=== PATIENT | male | born 1985 | race Two or more races ===

== ENCOUNTER 2020-11-16 11:41 | Emergency (ER) | payer BC ==
--- NOTE | 2020-11-16 13:38 | CT ---
INDICATION: Left lower quadrant pain. TECHNIQUE: CT of the abdomen and pelvis with 100 cc Isovue 370 IV contrast. Coronal and sagittal reconstructions. COMPARISON: None. FINDINGS: Mild diffuse hepatic steatosis. Calcified hepatic granuloma. The spleen is enlarged measuring 14.4 cm in length. The gallbladder, pancreas, and adrenal glands are negative. No biliary dilation. Hepatic and portal veins are patent. Symmetric enhancement of the kidneys. No hydronephrosis or ureteral dilation. No obstructing urinary calculi. The bladder and prostate gland are normal in appearance. There is a very large amount of stool throughout the entire colon, greatest in the cecum which measures up to 9 cm in diameter. Mild wall thickening and inflammatory fat stranding about the distal descending colon and sigmoid colon suggesting inflammation (series 203, image 48). Small amount of free fluid in the left paracolic gutter. No intraperitoneal free air. The distal sigmoid colon and rectum are decompressed. The appendix is not identified. Surgical clips in the right lower quadrant mesentery could be related to prior appendectomy. No evidence of small bowel obstruction. Small bilateral fat containing inguinal hernias. Tiny fat containing umbilical hernia. No lymphadenopathy. The bones are unremarkable. Bibasilar atelectasis. IMPRESSION: 1. Very large amount of stool throughout the entire colon, with mild wall thickening and inflammatory fat stranding about the distal descending colon and sigmoid colon. Findings could represent stercoral colitis. 2. Mild diffuse hepatic steatosis. Mild splenomegaly. Please note that all CT scans at this facility use dose modulation, iterative reconstruction, and/or weight-based dosing when appropriate to reduce radiation dose to as low as reasonably achievable. Dictated by Bethany Goodman MD @ 11/16/2020 1:37:[address] Bethany Goodman @ Nov 16 2020 1:37PM
[2020-11-16] MEDS ORDERED: Iopamidol 755 MG/ML 500 ML Multipack Bottle IVPUSH STA (13:58)
[2020-11-16] MEDS ORDERED: Magnesium Citrate Solution 296 ML Bottle PO ONE (14:11)
--- NOTE | 2020-11-16 14:15 | EDM.PDOC ---
ED HPI GENERAL MEDICAL PROBLEM - General Chief Complaint: Abdominal Pain Stated Complaint: STOMACH PAIN Time Seen by Provider: 11/16/20 11:46 Source of Information: Reports: Patient History Limitations: Reports: No Limitations - History of Present Illness INITIAL COMMENTS - FREE TEXT/NARRATIVE: HISTORY AND PHYSICAL: History of present illness: Patient is a 35-year-old male who presents to the emergency room from the clinic with concerns of diverticulitis. Patient states he has had left lower abdominal pain intermittently over the past few weeks. Patient denies any fever, chills, headache, change in vision, syncope or near syncope. Denies any chest pain, back pain, shortness of breath or cough. Denies any nausea, vomiting or dysuria. Patient states he does feel like he is slightly constipated; hasn't had a BM in 1-2 days. He has not noted any blood in urine or stool. Patient has been eating and drinking appropriately. Review of systems: As per history of present illness and below otherwise all systems reviewed and negative. Past medical history: As per history of present illness and as reviewed below otherwise noncontributory. Surgical history: As per history of present illness and as reviewed below otherwise noncontributory. Social history: See social history for further information Family history: As per history of present illness and as reviewed below otherwise noncontributory. Physical exam: General: Well developed and well nourished 35-year-old male. Alert and orientated x 3. Nontoxic in appearance and in no acute distress. Vital signs are stable and have been reviewed by me. Nursing notes were reviewed. HEENT: Atraumatic, normocephalic, pupils equal and reactive bilaterally, negative for conjunctival pallor or scleral icterus, mucous membranes moist, trachea midline. No drooling or trismus noted. No meningeal signs. No hot potato voice noted. Lungs: Clear to auscultation bilaterally. No wheezes, rales, or rhonchi. Chest nontender. Normal work of breathing, no accessory muscles used. Heart: S1S2, regular rate and rhythm without overt murmur, gallops, or rubs. No JVD. No peripheral edema Abdomen: Soft, nondistended, diffuse tenderness to lower abdomen. Normoactive bowel sounds. Negative for masses or costovertebral tenderness. Skin: Intact, warm, dry. No lesions or rashes noted. Hematologic: No petechiae or purpra. Mucosa appropriate color and normal nail bed color and refill. Extremities: Atraumatic, moves all extremities per self without difficulty or deficits, negative for cords or calf pain. Neurovascular unremarkable. Neuro: Awake, alert, oriented. Cranial nerves II through XII unremarkable. Cerebellum unremarkable. Motor and sensory unremarkable throughout. Exam nonfocal. Psychiatric: Mood and affect are appropriate. Normal thought process. Answering questions appropriately. Notes: *This patient was seen and evaluated during the 2019 SARS-CoV-2 novel coronavirus pandemic period. Community viral transmission is ongoing at time of this encounter and the emergency department is operating under pandemic response procedures. Patient is co-managed by Dr Villalobos. Labs are unremarkable. VSS. CT shows a very large amount of stool throughout the entire colon, with mild wall thickening and inflammatory fat stranding about the distal descending colon and sigmoid colon. Findings could represent stercoral colitis. Mild diffuse hepatic steatosis. Mild splenomegaly. I did talk with the general surgeon, Dr. Pablo who states this patient could be managed as inpatient or outpatient to ensure he has a bowel movement. Patient states he would prefer to go home and take the medication we discussed. We will send him with a fleets enema and bottle of magnesium citrate. I have talked with the patient about today's findings, in addition to providing specific details for plan of care. Reassessment at the time of disposition demonstrates that the patient is in no acute distress. Patient will return tomorrow if he does not have a bowel movement by morning. The patient is stable for discharge, counseling was provided and we discussed in great detail signs and symptoms that would prompt them to return to the Emergency Department. Medication, follow up and supportive care measures were reviewed and discussed. Voices understanding and is agreeable to plan of care. Denies any further questions or concerns at this time. Diagnostics: CBC, CMP, CT abdomen and pelvis Therapeutics: Magnesium citrate x1 bottle, fleets enema Prescription: None Impression: Fecal impaction Definitive disposition and diagnosis as appropriate pending reevaluation and review of above. Abdomen Pain Score (Numeric/FACES): 6 - Related Data Allergies Allergy/AdvReac Type Severity Reaction Status Date / Time No Known Allergies Allergy Verified 11/16/20 12:29 Home Meds: Home Meds . [No Known Home Meds] 11/16/20 [History] Past Medical History - Past Health History Medical/Surgical History: Denies Medical/Surgical History - Infectious Disease History Infectious Disease History: Reports: None Social & Family History - Tobacco Use Tobacco Use Status *Q: Current Every Day Tobacco User Years of Tobacco use: 10 Packs/Tins Daily: 0.2 - Recreational Drug Use Recreational Drug Use: No ED ROS GENERAL - Review of Systems Review Of Systems: Comprehensive ROS is negative, except as noted in HPI. ED EXAM, GENERAL - Physical Exam Exam: See Below (See dictation) Course - Vital Signs Last Recorded V/S: Last Vital Signs Temp 97.9 F 11/16/20 12:30 Pulse 62 11/16/20 12:30 Resp 16 11/16/20 12:30 BP 135/79 11/16/20 12:30 Pulse Ox 96 11/16/20 12:30 - Orders/Labs/Meds Orders: Active Orders 24 hr Category Date Time Status Enema [RC] ASDIRECTED Care 11/16/20 14:11 Ordered Meds: Medications Discontinued Medications Generic Name Dose Route Start Last Admin Trade Name Adriana PRN Reason Stop Dose Admin Iopamidol 100 ml 11/16/20 13:58 11/16/20 13:59 Iopamidol 755 Mg/Ml 500 Ml Multipack Bottle IVPUSH 11/16/20 13:59 100 ml ONETIME STA Administration Magnesium Citrate 50 ml 11/16/20 14:11 Magnesium Citrate Solution 296 Ml Bottle PO 11/16/20 14:12 ONETIME ONE Departure - Departure Time of Disposition: 14:18 Disposition: Home, Self-Care 01 Clinical Impression: Fecal impaction - Discharge Information Instructions: Fecal Impaction Referrals: Alicia Brizuela PA [Primary Care Provider] - Forms: ED Department Discharge Additional Instructions: The following information is given to patients seen in the emergency department who are being discharged to home. This information is to outline your options for follow-up care. We provide all patients seen in our emergency department with a follow-up referral. The need for follow-up, as well as the timing and circumstances, are variable depending upon the specifics of your emergency department visit. If you don't have a primary care physician on staff, we will provide you with a referral. We always advise you to contact your personal physician following an emergency department visit to inform them of the circumstance of the visit and for follow-up with them and/or the need for any referrals to a consulting specialist. The emergency department will also refer you to a specialist when appropriate. This referral assures that you have the opportunity for follow-up care with a specialist. All of these measure are taken in an effort to provide you with optimal care, which includes your follow-up. Under all circumstances we always encourage you to contact your private physician who remains a resource for coordinating your care. When calling for follow-up care, please make the office aware that this follow-up is from your recent emergency room visit. If for any reason you are refused follow-up, please contact the [facility] Emergency Department at and asked to speak to the emergency department charge nurse. [facility] [address] [place] [id number] [place] [address] Thank you for choosing the [facility] emergency department in [place] for your medical needs today. It was a pleasure caring for you. Today you were seen in the emergency department for fecal impaction 1. Today you were evaluated on an emergent basis. You have inflammation of your colon due to impacted fecal material. Please take the magnesium citrate orally and use the fleets enema to get "both ends moving". 2. Tylenol and/or ibuprofen as needed for pain management. 3. If you do not have a bowel movement by tomorrow please return to the emergency room for further evaluation. 4. Follow-up with primary care or general surgeon as we discussed. Return to the emergency room as needed and as discussed. Sepsis Event Note (ED) - Focused Exam Vital Signs: Vital Signs Temp Pulse Resp BP Pulse Ox 11/16/20 12:30 97.9 F 62 16 135/79 96 - My Orders Last 24 Hours: My Active Orders 11/16/20 14:11 Enema [RC] ASDIRECTED - Assessment/Plan Last 24 Hours: My Active Orders 11/16/20 14:11 Enema [RC] ASDIRECTED
== END 2020-11-16 14:23 | disposition home or self-care (01) ==
LOC: MW.ED 11:41
DX: K56.41 Fecal impaction (principal); Z72.0 Tobacco use
CPT/HCPCS: 74177; 99284; A9270; Q9967; 99283

== ENCOUNTER 2020-11-17 08:12 | Inpatient (IN) | payer BC ==
[2020-11-17] MEDS ORDERED: Morphine 4 MG/ML Syringe IVPUSH ONE (09:14)
[2020-11-17] MEDS ORDERED: Lactated Ringers 1,000 ML IV SCH ×2 (09:15→14:45)
[2020-11-17] MEDS ORDERED: Ondansetron 4 MG/2 ML SDV IVPUSH ONE (10:22)
[2020-11-17 10:54] LABS: BLOOD UREA NITROGEN,BUN 17 mg/dL (7.0-18.0); CARBON DIOXIDE,CO2 26.3 mmol/L (21.0-32.0); CHLORIDE,CL 102 mmol/L (98-107); GLUCOSE RANDOM 130 mg/dL (74-106); POTASSIUM,K 3.7 mmol/L (3.5-5.1); SODIUM,NA 139 mmol/L (136-148)
--- NOTE | 2020-11-17 12:33 | CT ---
Indication: No bowel movement, now vomiting, evaluate for obstruction Technique: Volumetric multidetector CT images of the abdomen and pelvis were obtained after the administration of intravenous contrast. 100 cc Isovue 370 low osmolar intravenous contrast Comparison: CT abdomen and pelvis November 16, 2020 Findings: The lung bases demonstrate basilar atelectasis and consolidative opacity, increased from comparison exam. The liver is enlarged with mild hepatic steatosis. The portal vein is patent. There is likely vicarious excretion of contrast within the gallbladder lumen. There is no significant common biliary ductal dilatation or abrupt cut off. The spleen is normal in enhancement and size. The stomach and duodenum are grossly unremarkable. The pancreas is normal in enhancement without significant atrophy. The adrenal glands are unremarkable. The kidneys demonstrate preserved corticomedullary differentiation without evidence of obstructive uropathy. There is again seen a severe amount of stool with abrupt focal caliber transition of the rectosigmoid colon which may represent obstructive changes and/or stricture. There is mild hyperemia and nonspecific stranding again seen adjacent to the rectosigmoid colon which may represent developing stercoral colitis. The appendix is surgically absent. There is no significant mesenteric, retroperitoneal, or pelvic sidewall lymph nodes. The aorta is nonaneurysmal. There is no significant atherosclerotic disease appreciated. The solid pelvic viscera are grossly unremarkable. There is no free fluid or free air. The anterior abdominal wall is intact without significant hernias. The lumbar vertebral body heights are grossly maintained with mild degenerative disc disease. Impression: There is again seen a severe diffuse amount of stool seen throughout the entirety of the colon with abrupt caliber transition within the mid rectosigmoid colon which may represent a focal stricture versus underlying mass with associated obstruction seen best on series 201, image 182. Correlate with direct visualization and proctoscopy. Otherwise, there is somewhat increased pericolonic inflammatory changes of the descending and rectosigmoid colon consistent with developing stercoral colitis. Please note that all CT scans at this facility use dose modulation, iterative reconstruction, and/or weight-based dosing when appropriate to reduce radiation dose to as low as reasonably achievable. Dictated by Brad Lua MD @ 11/17/2020 12:32:[address] Brad Lua @ Nov 17 2020 12:32PM
--- NOTE | 2020-11-17 14:38 | PCM.HP.2 ---
H&P History of Present Illness - General Date of Service: 11/17/20 Admit Problem/Dx: Admission Diagnosis/Problem Admission Diagnosis/Problem Colitis Source of Information: Patient History Limitations: Reports: No Limitations - History of Present Illness Initial Comments - Free Text/Narative: This 35-year-old male with no significant past medical history presented to the ER today with nausea vomiting abdominal pain and no bowel movement since Monday or Monday. He was in the ER yesterday with similar complaints was sent home to follow bowel regimen and was told to return if he did not have a bowel movement. He reports that he took the medicine including mag citrate and vomited most of the night without any bowel movements. He reports a bowel movement he had on Monday or Monday was smaller in caliber than normal and felt like he did not empty satisfactorily. He does not report any slow change in caliber of stools this was more abrupt in nature. He denies any black or bloody bowel movements. He denies any fevers or chills. He reports his abdominal pain is left lower quadrant and comes and goes and cramping sensation that is sharp and shooting. He does have other diffuse abdominal pain. He denies any chest pain shortness of breath. Denies any troubles urinating. He denies any burning or frequency urgency with urination. He denies any history o f constipation or this sort of abdominal pain in the past. He denies any history of IBS or IBD. He denies any family history of IBD. He does report that his father had colon cancer at the age of 54-55 where he had chemotherapy and a colectomy. Patient reports he smokes 1 to 2 cigarettes daily denies any chewing tobacco, no recreational drug use and occasional social alcohol use. In the ER mild leukocytosis noted at 12,860 hemoglobin 17.2 hematocrit 47.5. Platelet count 190,000 neutrophils 88.4. INR 1.07. Sodium 139 potassium 3.7 BUN 17 creatinine 0.9. Glucose mildly elevated at 130 lactic acid 1.5. Bilirubin AST ALT and alk phos all within normal limits. Covid swab negative. CT abdomen pelvis was obtained in the ER which shows severe diffuse amount of stool seen throughout the entirety of the colon with abrupt caliber transition within the mid rectosigmoid colon which may represent a focal stricture versus underlying mass with associated obstruction. Correlate with direct visualization or proctoscopy. There is somewhat increased pericolonic inflammatory changes of the descending and rectal colon consistent with developing stercoral colitis. In the ER he was given Zofran and morphine. Dr. Pablo, general surgeon was contacted recommended admission to hospitalist team for further evaluation and management and he will consult. I did call Dr. Pablo regarding CT findings with concerns of possible obstruction due to mass or stricture. He will come evaluate patient for further guidance on management. abdomen Pain Score (Numeric/FACES): 3 - Related Data Allergies/Adverse Reactions: Allergies Allergy/AdvReac Type Severity Reaction Status Date / Time No Known Allergies Allergy Verified 11/17/20 08:42 Home Medications: Home Meds . [No Known Home Meds] 11/16/20 [History] Past Medical History - Past Health History Medical/Surgical History: Denies Medical/Surgical History HEENT History: Reports: None Cardiovascular History: Reports: None. Denies: CAD, High Cholesterol, Stents Respiratory History: Reports: None. Denies: Asthma, PE Gastrointestinal History: Reports: None Genitourinary History: Reports: None Musculoskeletal History: Reports: None Neurological History: Reports: None Psychiatric History: Reports: None. Denies: Anxiety Endocrine/Metabolic History: Reports: None. Denies: Diabetes, Type II Hematologic History: Reports: None Immunologic History: Reports: None Oncologic (Cancer) History: Reports: None Dermatologic History: Reports: None - Infectious Disease History Infectious Disease History: Reports: None - Past Surgical History Head Surgeries/Procedures: Reports: None GI Surgical History: Reports: Appendectomy Social & Family History - Family History Family Medical History: No Pertinent Family History - Tobacco Use Tobacco Use Status *Q: Current Every Day Tobacco User Years of Tobacco use: 10 Packs/Tins Daily: 0.1 Used Tobacco, but Quit: No Second Hand Smoke Exposure: No - Caffeine Use Caffeine Use: Reports: Coffee - Alcohol Use Alcohol Use Frequency: Rarely, Socially - Recreational Drug Use Recreational Drug Use: No H&P Review of Systems - Review of Systems: Review Of Systems: See Below General: Reports: Fatigue. Denies: Fever, Chills HEENT: Reports: No Symptoms. Denies: Headaches, Sinus Congestion, Vertigo Pulmonary: Reports: No Symptoms. Denies: Shortness of Breath Cardiovascular: Reports: No Symptoms. Denies: Chest Pain Gastrointestinal: Reports: Abdominal Pain (LLQ), Constipation, Distension, Nausea, Vomiting, Other (caliber change as of Monday/Monday no bm since monday and no passing flatus). Denies: Black Stool, Bloody Stool, Melena Genitourinary: Reports: No Symptoms. Denies: Dysuria, Frequency Musculoskeletal: Reports: No Symptoms. Denies: Joint Pain Skin: Reports: No Symptoms Psychiatric: Reports: No Symptoms Neurological: Reports: No Symptoms Hematologic/Lymphatic: Reports: No Symptoms Immunologic: Reports: No Symptoms Exam - Exam Exam: See Below - Vital Signs Vital Signs: Last Vital Signs Temp 98.1 F 11/17/20 08:43 Pulse 93 11/17/20 12:56 Resp 17 11/17/20 12:56 BP 127/80 11/17/20 12:56 Pulse Ox 96 11/17/20 12:56 Weight: 100.834 kg - Exam Quality Assessment: DVT Prophylaxis (SCDs only). No: Supplemental Oxygen General: Alert, Oriented, Cooperative HEENT: Conjunctiva Clear, Posterior Pharynx Clear. No: Mucosa Moist & [place] (dry) Lungs: Clear to Auscultation, Normal Respiratory Effort Cardiovascular: Regular Rate, Regular Rhythm GI/Abdominal Exam: Soft, No Mass, Distended, Tender (LLQ main pain location with diffuse tenderness). No: Normal Bowel Sounds (hypoactive) Back Exam: Normal Inspection, Full Range of Motion Extremities: Normal Inspection, Normal Range of Motion, Non-Tender, No Pedal Edema Skin: Warm, Dry, Intact Neuro Extensive - Mental Status: Alert, Oriented x3 Psychiatric: Alert, Normal Affect, Normal Mood - Patient Data Lab Results Last 24 hrs: Laboratory Results - last 24 hr 11/17/20 11/17/20 11/17/20 Range/Units 10:10 10:10 10:10 WBC 12.86 H (4.0-11.0) K/uL RBC 5.66 (4.50-5.90) M/uL Hgb 17.2 H (13.0-17.0) g/dL Hct 47.5 (38.0-50.0) % MCV 83.9 (80.0-98.0) fL MCH 30.4 (27.0-32.0) pg MCHC 36.2 (31.0-37.0) g/dL RDW Std Deviation 39.5 (28.0-62.0) fl RDW Coeff of Edgar 13 (11.0-15.0) % Plt Count 190 (150-400) K/uL MPV 12.70 H (7.40-12.00) fL Neut % (Auto) 88.4 H (48.0-80.0) % Lymph % (Auto) 6.8 L (16.0-40.0) % [place] % (Auto) 4.7 (0.0-15.0) % Eos % (Auto) 0.0 (0.0-7.0) % Baso % (Auto) 0.1 (0.0-1.5) % Neut # (Auto) 11.4 H (1.4-5.7) K/uL Lymph # (Auto) 0.9 (0.6-2.4) K/uL [place] # (Auto) 0.6 (0.0-0.8) K/uL Eos # (Auto) 0.0 (0.0-0.7) K/uL Baso # (Auto) 0.0 (0.0-0.1) K/uL Nucleated RBC % 0.0 /100WBC Nucleated RBCs # 0 K/uL INR 1.07 Sodium 139 (136-148) mmol/L Potassium 3.7 (3.5-5.1) mmol/L Chloride 102 (98-107) mmol/L Carbon Dioxide 26.3 (21.0-32.0) mmol/L BUN 17 (7.0-18.0) mg/dL Creatinine 0.9 (0.8-1.3) mg/dL Est Cr Clr Drug Dosing 119.41 mL/min Estimated GFR (MDRD) > 60.0 ml/min Glucose 130 H (74-106) mg/dL Lactic Acid (0.4-2.0) mmol/L Calcium 8.8 (8.5-10.1) mg/dL Total Bilirubin 0.8 (0.2-1.0) mg/dL AST 30 (15-37) IU/L ALT 44 (14-63) IU/L Alkaline Phosphatase 100 (46-116) U/L Total Protein 7.9 (6.4-8.2) g/dL Albumin 4.3 (3.4-5.0) g/dL Globulin 3.6 (2.6-4.0) g/dL Albumin/Globulin Ratio 1.2 (0.9-1.6) SARS-CoV-2 RNA (NICK) (NEGATIVE) 11/17/20 11/17/20 Range/Units 10:36 12:49 WBC (4.0-11.0) K/uL RBC (4.50-5.90) M/uL Hgb (13.0-17.0) g/dL Hct (38.0-50.0) % MCV (80.0-98.0) fL MCH (27.0-32.0) pg MCHC (31.0-37.0) g/dL RDW Std Deviation (28.0-62.0) fl RDW Coeff of Edgar (11.0-15.0) % Plt Count (150-400) K/uL MPV (7.40-12.00) fL Neut % (Auto) (48.0-80.0) % Lymph % (Auto) (16.0-40.0) % [place] % (Auto) (0.0-15.0) % Eos % (Auto) (0.0-7.0) % Baso % (Auto) (0.0-1.5) % Neut # (Auto) (1.4-5.7) K/uL Lymph # (Auto) (0.6-2.4) K/uL [place] # (Auto) (0.0-0.8) K/uL Eos # (Auto) (0.0-0.7) K/uL Baso # (Auto) (0.0-0.1) K/uL Nucleated RBC % /100WBC Nucleated RBCs # K/uL INR Sodium (136-148) mmol/L Potassium (3.5-5.1) mmol/L Chloride (98-107) mmol/L Carbon Dioxide (21.0-32.0) mmol/L BUN (7.0-18.0) mg/dL Creatinine (0.8-1.3) mg/dL Est Cr Clr Drug Dosing mL/min Estimated GFR (MDRD) ml/min Glucose (74-106) mg/dL Lactic Acid 1.5 (0.4-2.0) mmol/L Calcium (8.5-10.1) mg/dL Total Bilirubin (0.2-1.0) mg/dL AST (15-37) IU/L ALT (14-63) IU/L Alkaline Phosphatase (46-116) U/L Total Protein (6.4-8.2) g/dL Albumin (3.4-5.0) g/dL Globulin (2.6-4.0) g/dL Albumin/Globulin Ratio (0.9-1.6) SARS-CoV-2 RNA (NICK) NEGATIVE (NEGATIVE) Result Diagrams: 11/17/20 10:10 11/17/20 10:10 Sepsis Event Note - Evaluation Sepsis Screening Result: No Definite Risk - Focused Exam Vital Signs: Vital Signs Temp Pulse Resp BP Pulse Ox 11/17/20 12:56 93 17 127/80 96 11/17/20 10:09 88 17 134/84 95 11/17/20 08:43 98.1 F 104 H 16 126/79 94 L - Problem List (1) Colonic obstruction SNOMED Code(s): 74332744 ICD Code: K56.609 - UNSP INTESTNL OBST, UNSP TO PARTIAL VERSUS COMPLETE OBST Status: Acute Current Visit: Yes (2) Colitis SNOMED Code(s): 77272942 ICD Code: K52.9 - NONINFECTIVE GASTROENTERITIS AND COLITIS, UNSPECIFIED Status: Acute Current Visit: Yes Problem List Initiated/Reviewed/Updated: Yes Orders Last 24hrs: Active Orders 24 hr Category Date Time Status Admission Status [Patient Status] [ADT] Stat ADT 11/17/20 13:07 Active Lactated Ringers [Ringers, Lactated] 1,000 ml Med 11/17/20 09:15 Active IV ASDIRECTED Medication Orders Lactated Ringer's (Ringers, Lactated) 1,000 mls @ 999 mls/hr IV ASDIRECTED VENESSA Last Admin: 11/17/20 10:10 Dose: 999 mls/hr Documented by: JAMAL Assessment/Plan Comment:: This 35-year-old male admitted with abdominal pain found to have possible colonic obstruction 1. Abdominal pain with possible colonic obstruction/stricture or mass -Consult Dr. Cornel Pablo general surgery he will come to see patient now -N.p.o. -Consider NG tube due to vomiting, no longer vomiting after zofran -Due to pericolonic inflammatory changes in the descending and rectosigmoid colon noted on CT, will add Cipro and Flagyl -Morphine as needed pain -Zofran as needed nausea -Monitor electrolytes closely specifically potassium -LR 125 mL/h VTE prophylaxis: SCDs for now due to possible surgical intervention needed GI prophylaxis: Protonix daily CODE STATUS: Full code Dispo: Discharge Plan: Dr Pablo, general surgeon came to evaluate patient and felt patient needs to transferred for further management with GI for possible mass or stricture. I spoke with [facility], no bed available. [facility], no bed available. I spoke with Dr Patten, surgery at [facility] as well as Hospitalist Dr Munguia and Dr Carbone GI specialist. They have accepted patient for transfer at this time. Patient will be transferred via ground to [facility] with Dr Munguia accepting. Dr Pablo spoke with patient regarding transfer and patient is agreeable.
[2020-11-17] MEDS ORDERED: Ondansetron 4 MG/2 ML SDV IVPUSH PRN (14:40)
[2020-11-17] MEDS ORDERED: Sodium Chloride 0.9% 2.5 ML Syringe FLUSH PRN (14:40)
[2020-11-17] MEDS ORDERED: Morphine 4 MG/ML Syringe IVPUSH PRN (15:21)
[2020-11-17] MEDS ORDERED: Ciprofloxacin in D5W 400 MG in Premix Bag 1 BAG IV SCH ×2 (15:30)
[2020-11-17] MEDS ORDERED: Pantoprazole 40 MG in Sodium Chloride 0.9% 10 ML IV SCH (15:30)
[2020-11-17] MEDS ORDERED: Iopamidol 755 MG/ML 500 ML Multipack Bottle IVPUSH STA (15:33)
[2020-11-17 15:58] LABS: HEMOGLOBIN A1C 5.3 %
[2020-11-17] MEDS ORDERED: metroNIDAZOLE/Normal Saline 500 MG in Premix Bag 1 BAG IV SCH (18:00)
--- NOTE | 2020-11-17 18:54 | HP ---
DATE OF : 1985 PRIMARY CARE PHYSICIAN: None PCP HISTORY OF PRESENT ILLNESS: The patient is a pleasant 35-year-old gentleman who says for the past week, he has had some issue with what he called some gas pains. He describes it as a somewhat goofy feeling of gas bubbles traveling through his abdomen. He denies any pain or discomfort with it really until this past Monday. He said he had a small bowel movement that was hard and felt like he did not really completely empty himself out. This was he says his last bowel movement. The patient says he then got more of abdominal cramping, more in his lower abdomen. He said it would kind of come in waves. The pain is not all the time. The patient felt he was constipated and dehydrated, so he says he was trying to drink fluids. Did go to the ER yesterday, had a CT scan. At that time, he did have a white cell count, and ER said that he was constipated with signs of stranding consistent with stercoral colitis. At the time, I did feel he could be admitted with some enemas to help clear up his constipation. Apparently, the patient wanted to try enemas at home and left. However, overnight, he did have some nausea and vomiting and enemas did not produce any results, so he came back in again today. Another CT scan again showed diffuse amount of stool throughout the whole colon, but now there was a caliber change in the mid rectosigmoid colon representing possible focal stricture versus an underlying mass. The patient was admitted. The Medicine team was consulted for possible colonoscopy. Currently, the patient says he feels okay. He denies any nausea or vomiting. He says his abdominal pain is good right now. He says it just again comes in waves of a cramping sensation, more in his lower abdomen. The patient has never had a colonoscopy before. He says that his father did have colon cancer at age 55. The patient denies any blood or changes in his bowel habits other than on Monday had kind of smaller bowel movement. His last bowel movement was on Monday. He says he last passed flatus on Monday. PAST MEDICAL HISTORY: The patient denies any. CURRENT HOME MEDICATIONS: The patient denies any. FAMILY HISTORY: Father had colon cancer at age 55. SOCIAL HISTORY: The patient works in [employer]. He smokes 2 to 3 cigarettes per day. He denies any illicit drug use. He says he uses alcohol only occasionally and just socially. PAST SURGICAL HISTORY: Appendectomy in 2010. PHYSICAL EXAMINATION: GENERAL: The patient is lying comfortably in hospital bed. He is alert and oriented in no acute distress. VITAL SIGNS: Temperature is 97.9, pulse is 85, blood pressure is 134/80, and saturating 94% on room air. HEENT: Head is normocephalic, atraumatic. LUNGS: Clear to auscultation bilaterally. No rhonchi or wheezing heard. HEART: Regular rate and rhythm. No murmurs appreciated. ABDOMEN: Soft with some mild bloating. He has some mild tenderness, mainly actually in the right lower abdomen but no peritonitis. No rebound or guarding. EXTREMITIES: No edema. NEUROLOGIC: Grossly no motor or neurologic deficits noted. RECTAL: No external hemorrhoids. Digital rectal exam, I do not really feel any masses or stool in the rectal vault. Prostate does feel a little larger and boggy. IMAGING: I did look at the images that shows a fairly dilated colon with stool and air, does change back to normal caliber in the rectosigmoid area looks like potentially right where the peritoneal reflection is potentially, but no real signs of any big masses per se. LABORATORY DATA: White cell count is 12.86, hemoglobin 7.2, and platelet count is 190. INR is 1.07. Sodium 139, potassium 3.7, chloride 102, bicarbonate 26.3, BUN 17, creatinine 0.9, glucose is 130, and lactic acid 1.5. COVID negative. ASSESSMENT AND PLAN: This is a pleasant gentleman who looks to have some type of colonic obstruction, type is unknown currently. This could be a stricture, infectious, or neoplasm. The patient does have a family history of colon cancer. I did go over with patient that potentially, he could have a colonoscopy to check to evaluate if what the obstruction was. However, at this facility, we do not have access to stents or anything to open up any obstruction to alleviate. I did go over, I could do colonoscopy and biopsy. Biopsies would also take time to return. If we are unable to relieve his colonic obstruction with just regular colonoscopy, he would likely then need a diverting colostomy with or without removal of the actual obstruction. The patient understands. I did go over that we could potentially transfer to facility that does offer colonic stenting or if they are able to do this then they could clear his obstruction and wait for any pathology come back to get plan for potentially a one time single surgery to relieve the obstruction and return continuity of bowel. He would otherwise likely end up with a colostomy at least temporarily, potentially even permanently. The patient says he understood. I did spend quite a bit of time explaining this to the patient. The patient would like us to attempt transfer to a facility that offers interventional GI for relieving of this obstruction. I have talked to the Medicine team. They are facilitating transfer. If transfer is unable to do, we will plan to do colonoscopy and potentially then a diverting ostomy. All of the patient's questions were answered. Discussed the patient with the hospital team and nursing staff. MAX HOLMAN /[id number]
--- NOTE | 2020-11-17 20:12 | EDM.PDOC ---
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 The patient states that since discharge yesterday he has not had a bowel movement and has had continued abdominal pain. He describes his abdominal pain is crampy and rated 8 out of 10 without any radiation. He states that he tried to take the magnesium citrate last night however he was unable to tolerate it and had an episode of vomiting. He states that he has not had any passing of gas. He denies any hematemesis, bilious emesis, melena or hematochezia. He states that the pain is just unrelenting and came back because he has not had a bowel movement. He denies any fever, chills, chest pain, shortness of breath. He denies any radiation of the pain. He denies any exacerbating factors or relieving factors. REVIEW OF SYSTEMS: Constitutional: Denies fever, chills. Eyes: Denies eye pain Ears, Nose, Mouth, & Throat: Denies earache Cardiovascular: Denies chest pain Respiratory: Denies shortness of breath Gastrointestinal: Positive for abdominal pain, nausea, constipation. Denies diarrhea, medic easier, hematemesis, bilious emesis, melena Genitourinary: Denies hematuria Skin:Denies a rash MSK: Denies joint pain Neurological: Denies blurred vision Psychiatric: Denies depression PAST MEDICAL HISTORY: As per history of present illness and as reviewed below otherwise noncontributory. SURGICAL HISTORY: As per history of present illness and as reviewed below otherwise noncontributory. SOCIAL HISTORY: As per history of present illness and as reviewed below otherwise noncontributory. FAMILY HISTORY: As per history of present illness and as reviewed below otherwise noncontributory. EXAMINATION OF ORGAN SYSTEMS/BODY AREAS: Constitutional: Blood pressure was 135/79, heart rate 62, respiratory rate 16 with an oxygen saturation 96% on room air. Temperature 36.6 General: Young man who does not appear to be in acute distress Psychiatric: Appropriate mood and affect. Eyes: No scleral icterus or conjunctival erythema ENMT: Moist mucous membranes. No pharyngeal erythema Cardiovascular: Regular, rate, and rhythm. No gallops, murmurs, or rubs. Bilateral upper extremity pulses symmetric and intact. No peripheral edema. No JVD. Respiratory: Lungs clear to auscultation bilaterally. No wheezes, rales, or rhonchi. Gastrointestinal: Soft, nondistended, diffusely tender to palpation. No rebound or guarding. Normoactive bowel sounds Genitourinary: No suprapubic tenderness Musculoskeletal: Normal range of motion. Skin: No lesions or abrasions. Neurological: Alert, GCS 15 MEDICAL DECISION MAKING AND COURSE IN THE ED WITH INTERPRETATION/REVIEW OF DIAGN OSTIC STUDIES: This is a 35-year-old man with a recent diagnosis of constipation with stercoral colitis who comes to the emergency department with continued abdominal pain with failed outpatient treatment who is unable to tolerate p.o. and is not passing gas. At this time given his history of constipation and this colitis I am also concerned about the possibility of obstruction. We will obtain a repeat CT abdomen pelvis for further evaluation. We will provide the patient with 4 mg of IV morphine, 4 mg of IV Zofran and provide him with 1 L of lactated Ringer's bolus. Will obtain CBC, CMP, INR, lactic acid, magnesium and a Covid swab. Laboratory: CBC reveals a leukocytosis of 12.86 with normal indices. Otherwise laboratory analysis is unremarkable. Lactic acid is normal. Covid is negative. The radiological images were viewed by myself along with reading the report from the radiologist. CT abdomen pelvis with IV contrast reveals severe diffuse amount of stool throughout the entire colon with an abrupt caliber transition point within the mid rectosigmoid colon which could represent a stricture versus underlying mass with associated obstruction. Recommend direct visualization and proctoscopy. Otherwise there is somewhat increased pericolonic inflammatory changes of the descending and rectosigmoid colon consistent with developing stercoral colitis. After imaging I did discuss results with the patient. I discussed that I would like to speak with general surgery. He was amenable to this plan. I contacted our general surgeon Dr. Pablo and spoke with him regarding the imaging. At this time I did discuss with him the possible stricture versus underlying mass. He recommended obtaining a rectal examination to palpate for a mass. I did discuss with him at this time that this cannot be completed in the emergency department due to patient privacy as the emergency department is full and there is no availability of beds to perform this examination. He did express understanding. At this time he stated that to not provide patient anything by mouth and to give him a enema and admit to medicine. He states that he could possibly do a colonoscopy on the patient and will evaluate the patient after his clinic. I did discuss this with the patient he was amenable to admission. I contacted our hospitalist Dr. Saunders who accepted the patient for admission. DISPOSITION: The patient was admitted to the hospital in stable condition CONDITION: Fair PROCEDURES: None FINAL IMPRESSION(S)/DIAGNOSES: 1. Acute abdominal pain secondary to severe constipation and stercoral colitis 2. Acute possible obstruction versus stricture versus underlying mass 3. Acute stercoral colitis Ariel Reyes M.D. abdomen Pain Score (Numeric/FACES): 3 - Related Data Allergies Allergy/AdvReac Type Severity Reaction Status Date / Time No Known Allergies Allergy Verified 11/17/20 08:42 Home Meds: Home Meds . [No Known Home Meds] 11/16/20 [History] Past Medical History - Past Health History Medical/Surgical History: Denies Medical/Surgical History HEENT History: Reports: None Cardiovascular History: Reports: None. Denies: CAD, High Cholesterol, Stents Respiratory History: Reports: None. Denies: Asthma, PE Gastrointestinal History: Reports: None Genitourinary History: Reports: None Musculoskeletal History: Reports: None Neurological History: Reports: None Psychiatric History: Reports: None. Denies: Anxiety Endocrine/Metabolic History: Reports: None. Denies: Diabetes, Type II Hematologic History: Reports: None Immunologic History: Reports: None Oncologic (Cancer) History: Reports: None Dermatologic History: Reports: None - Infectious Disease History Infectious Disease History: Reports: None - Past Surgical History Head Surgeries/Procedures: Reports: None GI Surgical History: Reports: Appendectomy Social & Family History - Family History Family Medical History: No Pertinent Family History - Tobacco Use Tobacco Use Status *Q: Current Every Day Tobacco User Years of Tobacco use: 10 Packs/Tins Daily: 0.1 Used Tobacco, but Quit: No Second Hand Smoke Exposure: No - Caffeine Use Caffeine Use: Reports: Coffee - Recreational Drug Use Recreational Drug Use: No ED ROS GENERAL - Review of Systems Review Of Systems: See Below ED EXAM, GENERAL - Physical Exam Exam: See Below GI/Abdominal: Soft, No Mass, Distended, Tender (LLQ main pain location with diffuse tenderness). No: Normal Bowel Sounds (hypoactive) Back Exam: Normal Inspection, Full Range of Motion Extremities: Normal Inspection, Normal Range of Motion, Non-Tender, No Pedal Edema Course - Vital Signs Last Recorded V/S: Last Vital Signs Temp 36.6 C 11/17/20 14:41 Pulse 85 11/17/20 14:41 Resp 17 11/17/20 12:56 BP 134/80 11/17/20 14:41 Pulse Ox 94 L 11/17/20 14:41 - Orders/Labs/Meds Labs: Laboratory Tests 11/17/20 11/17/20 11/17/20 Range/Units 10:10 10:10 10:10 WBC 12.86 H (4.0-11.0) K/uL RBC 5.66 (4.50-5.90) M/uL Hgb 17.2 H (13.0-17.0) g/dL Hct 47.5 (38.0-50.0) % MCV 83.9 (80.0-98.0) fL MCH 30.4 (27.0-32.0) pg MCHC 36.2 (31.0-37.0) g/dL RDW Std Deviation 39.5 (28.0-62.0) fl RDW Coeff of Edgar 13 (11.0-15.0) % Plt Count 190 (150-400) K/uL MPV 12.70 H (7.40-12.00) fL Neut % (Auto) 88.4 H (48.0-80.0) % Lymph % (Auto) 6.8 L (16.0-40.0) % Mayes % (Auto) 4.7 (0.0-15.0) % Eos % (Auto) 0.0 (0.0-7.0) % Baso % (Auto) 0.1 (0.0-1.5) % Neut # (Auto) 11.4 H (1.4-5.7) K/uL Lymph # (Auto) 0.9 (0.6-2.4) K/uL Mayes # (Auto) 0.6 (0.0-0.8) K/uL Eos # (Auto) 0.0 (0.0-0.7) K/uL Baso # (Auto) 0.0 (0.0-0.1) K/uL Nucleated RBC % 0.0 /100WBC Nucleated RBCs # 0 K/uL INR 1.07 Sodium 139 (136-148) mmol/L Potassium 3.7 (3.5-5.1) mmol/L Chloride 102 (98-107) mmol/L Carbon Dioxide 26.3 (21.0-32.0) mmol/L BUN 17 (7.0-18.0) mg/dL Creatinine 0.9 (0.8-1.3) mg/dL Est Cr Clr Drug Dosing 119.41 mL/min Estimated GFR (MDRD) > 60.0 ml/min Glucose 130 H (74-106) mg/dL Hemoglobin A1c (4.5 - 6.2) % Lactic Acid (0.4-2.0) mmol/L Calcium 8.8 (8.5-10.1) mg/dL Total Bilirubin 0.8 (0.2-1.0) mg/dL AST 30 (15-37) IU/L ALT 44 (14-63) IU/L Alkaline Phosphatase 100 (46-116) U/L Total Protein 7.9 (6.4-8.2) g/dL Albumin 4.3 (3.4-5.0) g/dL Globulin 3.6 (2.6-4.0) g/dL Albumin/Globulin Ratio 1.2 (0.9-1.6) SARS-CoV-2 RNA (NICK) (NEGATIVE) 11/17/20 11/17/20 11/17/20 Range/Units 10:10 10:36 12:49 WBC (4.0-11.0) K/uL RBC (4.50-5.90) M/uL Hgb (13.0-17.0) g/dL Hct (38.0-50.0) % MCV (80.0-98.0) fL MCH (27.0-32.0) pg MCHC (31.0-37.0) g/dL RDW Std Deviation (28.0-62.0) fl RDW Coeff of Edgar (11.0-15.0) % Plt Count (150-400) K/uL MPV (7.40-12.00) fL Neut % (Auto) (48.0-80.0) % Lymph % (Auto) (16.0-40.0) % Mayes % (Auto) (0.0-15.0) % Eos % (Auto) (0.0-7.0) % Baso % (Auto) (0.0-1.5) % Neut # (Auto) (1.4-5.7) K/uL Lymph # (Auto) (0.6-2.4) K/uL Mayes # (Auto) (0.0-0.8) K/uL Eos # (Auto) (0.0-0.7) K/uL Baso # (Auto) (0.0-0.1) K/uL Nucleated RBC % /100WBC Nucleated RBCs # K/uL INR Sodium (136-148) mmol/L Potassium (3.5-5.1) mmol/L Chloride (98-107) mmol/L Carbon Dioxide (21.0-32.0) mmol/L BUN (7.0-18.0) mg/dL Creatinine (0.8-1.3) mg/dL Est Cr Clr Drug Dosing mL/min Estimated GFR (MDRD) ml/min Glucose (74-106) mg/dL Hemoglobin A1c 5.3 (4.5 - 6.2) % Lactic Acid 1.5 (0.4-2.0) mmol/L Calcium (8.5-10.1) mg/dL Total Bilirubin (0.2-1.0) mg/dL AST (15-37) IU/L ALT (14-63) IU/L Alkaline Phosphatase (46-116) U/L Total Protein (6.4-8.2) g/dL Albumin (3.4-5.0) g/dL Globulin (2.6-4.0) g/dL Albumin/Globulin Ratio (0.9-1.6) SARS-CoV-2 RNA (NICK) NEGATIVE (NEGATIVE) Meds: Medications Discontinued Medications Generic Name Dose Route Start Last Admin Trade Name Freq PRN Reason Stop Dose Admin Lactated Ringer's 1,000 mls @ 999 mls/hr 11/17/20 09:15 11/17/20 10:10 Ringers, Lactated IV 999 mls/hr ASDIRECTED VENESSA Administration Lactated Ringer's 1,000 mls @ 125 mls/hr 11/17/20 14:45 11/17/20 15:12 Ringers, Lactated IV 125 mls/hr Q8H VENESSA Administration Metronidazole 500 mg/ Premix 100 mls @ 100 mls/hr 11/17/20 18:00 11/17/20 17:46 IV 100 mls/hr QID VENESSA Administration Ciprofloxacin/Dextrose 400 mg/ 200 mls @ 200 mls/hr 11/17/20 15:30 11/17/20 15:50 Premix IV 200 mls/hr Q12H VENESSA Administration Pantoprazole Sodium 40 mg/ 10 mls @ 300 mls/hr 11/17/20 15:30 11/17/20 15:49 Sodium Chloride IV 300 mls/hr Q24H VENESSA Administration Iopamidol 100 ml 11/17/20 15:33 11/17/20 15:45 Iopamidol 755 Mg/Ml 500 Ml Multipack Bottle IVPUSH 11/17/20 15:34 100 ml ONETIME STA Administration Morphine Sulfate 4 mg 11/17/20 09:14 11/17/20 10:11 Morphine 4 Mg/Ml Syringe IVPUSH 11/17/20 09:15 4 mg ONETIME ONE Administration Morphine Sulfate 3 mg 11/17/20 15:21 Morphine 4 Mg/Ml Syringe IVPUSH Q2H PRN Pain Ondansetron HCl 4 mg 11/17/20 10:22 11/17/20 10:52 Ondansetron 4 Mg/2 Ml Sdv IVPUSH 11/17/20 10:23 4 mg ONETIME ONE Administration Ondansetron HCl 4 mg 11/17/20 14:40 Ondansetron 4 Mg/2 Ml Sdv IVPUSH Q4H PRN Nausea Sodium Chloride 2.5 ml 11/17/20 14:40 Sodium Chloride 0.9% 2.5 Ml Syringe FLUSH ASDIRECTED PRN Keep Vein Open Departure - Departure Time of Disposition: 13:07 Disposition: Admitted As Inpatient 67 Condition: Fair Clinical Impression: Constipation, Stercoral colitis - Discharge Information Sepsis Event Note (ED) - Evaluation Sepsis Screening Result: Possible Sepsis Risk - Focused Exam Vital Signs: Vital Signs Temp Pulse Resp BP Pulse Ox 11/17/20 12:56 93 17 127/80 96 11/17/20 10:09 88 17 134/84 95 11/17/20 08:43 36.7 C 104 H 16 126/79 94 L
== END 2020-11-17 18:35 | DRG 247 ==
LOC: MW.ED 08:12 → MW.MS 13:07
PROVIDERS: ADMIT Student in an Organized Health Care Education/Training Program; ATTEND Student in an Organized Health Care Education/Training Program
DX: K56.609 Unspecified intestinal obstruction, unspecified as to partial versus complete obstruction (principal); K52.9 Noninfective gastroenteritis and colitis, unspecified; F17.210 Nicotine dependence, cigarettes, uncomplicated; K59.00 Constipation, unspecified; Z20.822 Contact with and (suspected) exposure to COVID-19; Z90.49 Acquired absence of other specified parts of digestive tract; Z80.0 Family history of malignant neoplasm of digestive organs
CPT/HCPCS: 36415; 74177; 74177-26; 80053; 83036; 83605; 85025; 85610; 96374; 96375; 99285-25; C9113; J0744; J2270; J2405; J3490; J7120; Q9967; U0002

== ENCOUNTER 2022-08-20 13:30 | Emergency (ER) | payer BC ==
[2022-08-20] MEDS ORDERED: Sodium Chloride 0.9% 1,000 ML IV STA (14:56)
[2022-08-20] MEDS ORDERED: Sodium Chloride 0.9% 2.5 ML Syringe FLUSH PRN (14:56)
[2022-08-20] MEDS ORDERED: Sodium Chloride 0.9% 10 ML Syringe FLUSH PRN (14:56)
[2022-08-20] MEDS ORDERED: Acetaminophen 500 MG Tab PO STA (14:56)
[2022-08-20 14:59] LABS: APPEARANCE,URINE CLOUDY; BILIRUBIN,URINE NEGATIVE (NEGATIVE); COLOR,URINE YELLOW; GLUCOSE,URINE NEGATIVE (NEGATIVE); KETONES,URINE NEGATIVE (NEGATIVE); LEUKOCYTE ESTERASE,URINE NEGATIVE (NEGATIVE); NITRITE,URINE NEGATIVE (NEGATIVE); OCCULT BLOOD,URINE LARGE (NEGATIVE); PROTEIN,URINE NEGATIVE (NEGATIVE); UROBILINOGEN,URINE 0.2 EU/dL (<2.0)
[2022-08-20 15:16] LABS: AMORPHOUS SEDIMENT,URINE HEAVY (NEGATIVE); BACTERIA,URINE NOT SEEN (NEGATIVE); EPITHELIAL CELLS,URINE RARE (NONE-FEW); MUCUS,URINE LIGHT (NONE-MOD); WBC,URINE 0-2 (0-5/HPF)
[2022-08-20 15:23] LABS: BASOPHILS PERCENT AUTO 0.2 % (0.0-1.5); EOSINOPHILS PERCENT AUTO 0.1 % (0.0-7.0); HEMATOCRIT 44.9 % (38.0-50.0); HEMOGLOBIN 16.2 g/dL (13.0-17.0); LYMPHOCYTES PERCENT AUTO 10.4 % (16.0-40.0); MEAN CORPUSCULAR HEMOGLOBIN 30.3 pg (27.0-32.0); MEAN CORPUSCULAR HGB CONC 36.1 g/dL (31.0-37.0); MEAN CORPUSCULAR VOLUME 84.1 fL (80.0-98.0); MONOCYTES ABSOLUTE AUTO 0.5 K/uL (0.0-0.8); MONOCYTES PERCENT AUTO 4.9 % (0.0-15.0); NEUTROPHILS ABSOLUTE AUTO 7.8 K/uL (1.4-5.7); NEUTROPHILS PERCENT AUTO 84.4 % (48.0-80.0); NRBC ABSOLUTE 0 K/uL; PLATELET COUNT,PLT 142 K/uL (150-400); RED BLOOD CELL COUNT 5.34 M/uL (4.50-5.90); WHITE BLOOD CELL COUNT,WBC 9.27 K/uL (4.0-11.0)
[2022-08-20 15:52] LABS: A/G RATIO 1.1 (0.9-1.6); ALBUMIN 4.2 g/dL (3.4-5.0); BILIRUBIN TOTAL 0.6 mg/dL (0.2-1.0); CALCIUM 8.8 mg/dL (8.5-10.1); CARBON DIOXIDE,CO2 26.8 mmol/L (21.0-32.0); CREATININE 1.2 mg/dL (0.8-1.3); EST CRCL DRUG DOSING (CG) 87.87 mL/min; POTASSIUM,K 4.4 mmol/L (3.5-5.1); PROTEIN TOTAL,TP 7.9 g/dL (6.4-8.2)
== END 2022-08-20 16:45 | disposition home or self-care (01) ==
LOC: MW.ED 13:30
DX: N13.2 Hydronephrosis with renal and ureteral calculous obstruction (principal)
CPT/HCPCS: 36415; 74176; 80053; 81001; 83690; 85025; 96360; 99284; A9270; J3490; J7030